=== PATIENT | female | born 1955 | race Caucasian/White ===

== ENCOUNTER 2018-02-23 03:56 | Inpatient (IN) | payer BC ==
[~2018-02-23] VITALS: Ht 167.6 cm; Wt 74.4 kg
[~2018-02-23 03:56] MED LIST: ARMO200T PO; CYCL-10 PO; DULO20CA PO; ESOM20CA33 PO; ESTR1TAB PO; LINA145C PO; LYR50 PO; MELO15TA13 PO; PRED-428 PO; TRAM100T28 PO
[2018-02-23 04:05] VITALS: BP_SYST 157
--- NOTE | 2018-02-23 04:05 | NUR ---
Patient to ER bed 3 to gown for evaluation. Side rails .
--- NOTE | 2018-02-23 04:10 | NUR ---
PT IN BED 3 WITH C/O ABDOMINAL PAIN , DR SARMIENTO AWARE.
--- NOTE | 2018-02-23 04:18 | NUR ---
SHELLY Jeffries at bedside examining patient.
[2018-02-23] MEDS ORDERED: NACL 0.9% 1,000 ML IV ONE ×2 (04:30→06:30)
[2018-02-23] MEDS ORDERED: MORPHINE 4 MG/ML INJ. SYRINGE IVP ONE ×2 (04:30→05:30)
[2018-02-23] MEDS ORDERED: ONDANSETRON HCL 4 MG/2 ML VIAL IVP ONE (04:30)
--- NOTE | 2018-02-23 04:55 | NUR ---
# 22 gauge angiocath placed to LAC. Use of asceptic technique. Opsite placed over site. Blood return noted. Blood for lab drawn from site. Flushed with 10 cc of normal saline. No evidence of infiltration noted. Patient tolerated well.
[2018-02-23] MEDS ORDERED: DULO60CA41 PO (05:11)
[2018-02-23] MEDS ORDERED: TRAM50TA92 PO (05:16)
[2018-02-23] MEDS ORDERED: TRAMADOL (05:16)
[2018-02-23] MEDS ORDERED: PREG150C PO (05:20)
[2018-02-23] MEDS ORDERED: ESOM40CA53 PO (05:21)
[2018-02-23] MEDS ORDERED: ACET-2165 PO (05:22)
[2018-02-23] MEDS ORDERED: SYMPROIC PO (05:28)
[2018-02-23 06:13] LABS: BASOPHILS # (AUTO) 0.2 K/uL (0.0-0.2); EOSINOPHILS # (AUTO) 0.1 K/uL (0.0-0.4); EOSINOPHILS % (AUTO) 0.8 % (0.0-4.0); HEMATOCRIT 43.2 % (36-48); HEMOGLOBIN 14.4 g/dL (12.0-16.0); LYMPHOCYTES # (AUTO) 2.2 K/uL (1.0-5.5); LYMPHOCYTES % (AUTO) 12.6 % (20.5-51.5); MEAN CORPUSCULAR HEMOGLOBIN 32 pg (27-31); MEAN CORPUSCULAR HGB CONC 33 % (32-36); MEAN CORPUSCULAR VOLUME 95 fL (79.0-98.0); MONOCYTES # (AUTO) 0.5 K/uL (0.0-1.0); MONOCYTES % (AUTO) 2.9 % (1.7-9.3); NEUTROPHILS # (AUTO) 14.2 K/uL (1.8-7.7); PLATELET COUNT (AUTO) 364 K/uL (130-430); RED BLOOD CELL COUNT(AUTO) 4.56 MIL/uL (4.2-6.2); RED CELL DISTRIBUTION WIDTH 12.7 % (9.0-15.0); WHITE BLOOD COUNT (AUTO) 17.2 K/uL (4.8-10.8)
[2018-02-23] MEDS ORDERED: KETOROLAC TROMETHAMINE 30 MG VIAL IVP ONE (06:15)
[2018-02-23 06:28] LABS: CALCIUM 9.3 mg/dL (8.4-11.0); CREATININE 0.65 mg/dL (0.55-1.30); POTASSIUM 3.8 mmol/L (3.5-5.1)
[2018-02-23] MEDS ORDERED: metroNIDAZOLE 500 mg/NS 100 ML IV ONE (06:30)
[2018-02-23] MEDS ORDERED: PIPERACILLIN/TAZO 3.375 GM in NS 50 ML IV ONE (06:30)
[2018-02-23 06:32] LABS: ALBUMIN 3.7 g/dL (3.4-4.8); TOTAL BILIRUBIN 0.4 mg/dL (0.0-1.0)
[2018-02-23 06:36] LABS: NEUTROPHILS % (AUTO) 82.7 % (40.0-70.0)
[2018-02-23] MEDS ORDERED: PIPERACILLIN/TAZOBACTAM 3.375 GM/VIAL (ZOSYN) IV ONE (06:38)
--- NOTE | 2018-02-23 07:30 | NUR ---
Report received from Maritza BURRIS. Pt laying on KIMBERLY white, at bedside. No acute distress noted.
[2018-02-23 08:04] LABS: BILIRUBIN,URINE NEGATIVE (NEGATIVE); BLOOD, URINE NEGATIVE (NEGATIVE); CLARITY/URINE HAZY (CLEAR); COLOR,URINE YELLOW (YELLOW); GLUCOSE,URINE NEGATIVE (NEGATIVE); KETONES,URINE TRACE (NEGATIVE); LEUKOCYTE ESTERASE ,URINE 1+ (NEGATIVE); NITRITE, URINE NEGATIVE (NEGATIVE); PROTEIN URINE NEGATIVE (NEGATIVE); UROBILINOGEN,URINE 0.2 (0.2-1.0)
[2018-02-23 08:11] LABS: BACTERIA,URINE MANY /HPF (None Seen); MUCUS,URINE 1+ /LPF (None Seen); RBC,URINE 0-3 /HPF (0-3)
--- NOTE | 2018-02-23 08:18 | NUR ---
Dr. Boogie at bedside speaking with pt and pt's discussing lab and diagnostic results.
[2018-02-23] MEDS ORDERED: D5/0.45 NS 1,000 ML IV ONE (08:45)
--- NOTE | 2018-02-23 08:45 | NUR ---
Transfer to tele via ACLS protocol. Licensed nurse present. IV present no signs or symptoms of infiltration.
--- NOTE | 2018-02-23 08:45 | NUR ---
Patient will be admitted to care of Dr. Barrios. Admitted to tele unit. Will go to room 130A. Belongings list completed. Summary report printed. Report will be given at bedside.
[2018-02-23] MEDS ORDERED: LORazepam 2 MG/ML VIAL (FOR ER USE) IVP ONE (09:00)
--- NOTE | 2018-02-23 09:36 | NUR ---
# 16 FR NG tube placed to L nare. Placement checked by auscultation of instilled air into stomach and aspiration of gastric contents. Tubing taped in place to prevent dislodging. Patient tolerated well.
--- NOTE | 2018-02-23 09:55 | NUR ---
Admission Note Received patient from ER with diagnosis of SMALL BOWEL OBSTRUCTION under the care of DR. JULIO. Initial Plan of Care discussed-patient verbalized understanding. Family at bedside. Oriented to room, call light, pain management and safety.
[2018-02-23 10:08] VITALS: BP_SYST 117
[2018-02-23] MEDS ORDERED: ACETAMINOPHEN 500 MG TABLET PO PRN (11:00)
[2018-02-23] MEDS ORDERED: ACETAMINOPHEN 650 MG SUPP.RECT RC PRN (11:00)
[2018-02-23] MEDS: D5LR 1,000 ML IV SCH ×2 (11:04→21:00)
--- NOTE | 2018-02-23 11:13 | NUR ---
CONSULT SURGERY SBO DR DUVALL,JESUS [phone] S/W DR DUVALL HE IS AWARE OF CONSULT
--- NOTE | 2018-02-23 11:15 | NUR ---
DR. DUVALL GAVE DR. DUVALL BRIEF SURGICAL HISTORY. DR. FELDER ROUND ON PT AFTER SBO SERIES.
[2018-02-23] MEDS ORDERED: GASTROGRAFIN 120 ML ONE (11:18)
--- NOTE | 2018-02-23 11:22 | NUR ---
PT TAKEN FOR SBO SERIES WILL CONTINUE TO MONITOR UPON RETURN.
[2018-02-23] MEDS: ONDANSETRON HCL 4 MG/2 ML VIAL IVP PRN ×2 (13:31→19:45)
[2018-02-23] MEDS: MORPHINE 4 MG/ML INJ. SYRINGE IVP PRN (13:31)
--- NOTE | 2018-02-23 13:35 | NUR ---
RETURN FROM RADIOLOGY SBO SERIES IS NOT COMPLETE YET. PT IS COMPLAINING OF ABDOMINAL PAIN AND NAUSEA. WAS GIVEN PRN MORPHINE 4MG AND ZOFRAN. PT IS ADVISED OF INCREASED RISK FOR FALLS AND THE IMPORTANCE OF USING THE CALL LIGHT IF SHE WANTS TO GET OUT OF BED. SON IS AT BEDSIDE. PER MEDICAL OFFICE CLERK, DO NOT CONNECT PT TO NGTUBE SUCTION. SCD'S ARE ON, BED IS AT LOWEST POSITION, CALL LIGHT WITHIN REACH, TWO SIDE RAILS UP, BED ALARM IS ON. WILL CONTINUE TO MONITOR.
--- NOTE | 2018-02-23 14:15 | NUR ---
ROUNDS LATE ENTRY DUE TO PT CARE: PT IS SLEEPING BUT IS EASILY AWAKEN. NO SIGNS OR SYMPTOMS OF DISTRESS OR SOB NOTED. FAMILY IS AT BEDSIDE. SBO SERIES IS ONGOING. IV ANTIBIOTIC WAS GIVEN. CURRENT NEEDS ARE MET. BED IS AT LOWEST POSITION, CALL LIGHT WITHIN REACH, THREE SIDE RAILS UP, BED ALARM IS ON. WILL CONTINUE TO MONITOR.
[2018-02-23] MEDS: PIPERACILLIN/TAZO 3.375/DEX-IS 50 ML IV SCH ×3 (14:18→23:18)
[2018-02-23 16:07] VITALS: BP_SYST 110
--- NOTE | 2018-02-23 16:17 | NUR ---
ROUNDS PT IS SLEEPING BUT IS EASILY AWAKEN. NO SIGNS OR SYMPTOMS OF DISTRESS OR SOB NOTED. SPOUSE IS AT BEDSIDE. PT CONTINUES TO BE ON LOW INTERMITTENT SUCTION ON NG TUBE. CURRENT NEEDS ARE MET. BED IS AT LOWEST POSITION, CALL LIGHT WITHIN REACH, TWO SIDE RAILS UP. WILL CONTINUE TO MONITOR.
--- NOTE | 2018-02-23 18:57 | NUR ---
CLOSING NOTE PT IS SLEEPING BUT IS EASILY AWAKEN. NO SIGNS OR SYMPTOMS OF DISTRESS OR SOB NOTED. NG TUBE WAS REMOVED PER ORDER. PT WAS GIVEN CLEAR LIQUID DIET. SPOUSE IS AT BEDSIDE. CURRENT NEEDS ARE MET. BED IS AT LOWEST POSITION, CALL LIGHT WITHIN REACH, THREE SIDE RAILS UP, BED ALARM IS ON. WILL CONTINUE TO MONITOR UNTIL CARE AND REPORT IS GIVEN TO NOVELTY TWISTER OPERATOR NURSE.
[2018-02-23 19:55] VITALS: BP_SYST 122
--- NOTE | 2018-02-23 19:55 | NUR ---
INITIAL NOTE AT INITIAL ASSESSMENT, PATIENT IS RESTING IN BED, STABLE, NO SIGNS OF RESPIRATORY DISTRESS. IS AT BEDSIDE. PATIENT VERBALIZES NAUSEA, AND TOLERABLE ABDOMINAL PAIN. PRN MEDICATION FOR NAUSEA WILL BE GIVEN. PLAN OF CARE FOR THE EVENING IS COMMUNICATED WITH THE PATIENT AND FAMILY. IV IS SECURE, INTACT, AND RUNNING IVF ORDERED. CALL LIGHT- TEACH BACK IS SUCCESSFUL. BED IS LOCKED, ALARMED, AND AT THE LOWEST LEVEL.
--- NOTE | 2018-02-23 21:53 | NUR ---
NOTE PATIENT IS SLEEPING, STABLE, NO SIGNS OF RESPIRATORY DISTRESS. FAMILY IS AT BEDSIDE. CALL LIGHT WITHIN REACH. BED IS LOCKED, ALARMED, AND AT THE LOWEST LEVEL.
--- NOTE | 2018-02-23 23:05 | NUR ---
NOTE PATIENT IS SLEEPING, STABLE, NO SIGNS OF RESPIRATORY DISTRESS. CALL LIGHT WITHIN REACH. BED IS LOCKED, ALARMED, AND AT THE LOWEST LEVEL.
--- NOTE | 2018-02-24 00:22 | NUR ---
IV D/V AND INSERTION PATIENT HAS BEEN UNABLE TO REST DUE TO HIGH PRESSURE ALARMS SINCE HER IV IS ON HER LEFT AC AND SHE DOES NOT LIKE TO KEEP HER ARM STRAIGHT. AT THIS TIME, PATIENT WAS OFFERED TO HAVE A NEW IV PLACED ON HER FOREARM WHERE IT WILL NOT BE LIKELY TO ALARM FOR HIGH PRESSURE OFTEN, PATIENT AGREED. NEW IV HAS BEEN STARTED ON LEFT FOREARM 20 GAUGE. IV IS SECURED, INTACT, AND PATENT, IT IS RUNNING IVF ORDERED. OLD IV HAS BEEN D/C, TIP INTACT, NO BLEEDING NOTED, PATIENT TOLERATED WELL. PATIENT IS STABLE, NO SIGNS OF RESPIRATORY DISTRESS. POSITIONED FOR COMFORT. CALL LIGHT WITHIN REACH. BED IS LOCKED, ALARMED, AND AT THE LOWEST LEVEL. Addendum: 02/24/18 at 0028 by Robin Ralph RN MISSPELLED TITLE- IV D/C AND INSERTION*
[2018-02-24 01:06] VITALS: BP_SYST 125
--- NOTE | 2018-02-24 02:14 | NUR ---
INITIAL PATIENT IS SLEEPING, STABLE, NO SIGNS OF RESPIRATORY DISTRESS. CALL LIGHT WITHIN REACH. BED IS LOCKED, ALARMED, AND AT THE LOWEST LEVEL. Addendum: 02/24/18 at 0654 by Robin Ralph RN TITLE INTENDED TO BE "NOTE"
--- NOTE | 2018-02-24 04:10 | NUR ---
NOTE PATIENT IS SLEEPING, STABLE, NO SIGNS OF RESPIRATORY DISTRESS. CALL LIGHT WITHIN REACH. BED IS LOCKED, ALARMED, AND AT THE LOWEST LEVEL.
--- NOTE | 2018-02-24 05:37 | NUR ---
NOTE PATIENT IS SLEEPING, STABLE, NO SIGNS OF RESPIRATORY DISTRESS. CALL LIGHT WITHIN REACH. BED IS LOCKED, ALARMED, AND AT THE LOWEST LEVEL.
--- NOTE | 2018-02-24 06:32 | NUR ---
CLOSING NOTE PATIENT IS SLEEPING, STABLE, NO SIGNS OF RESPIRATORY DISTRESS. IV IS SECURE, INTACT, AND RUNNING IVF ORDERED. CALL LIGHT WITHIN REACH. BED IS LOCKED, ALARMED, AND AT THE LOWEST LEVEL. WILL CONTINUE TO MONITOR UNTIL SHIFT REPORT IS GIVEN AT BEDSIDE TO AM NURSE.
[2018-02-24] MEDS: PIPERACILLIN/TAZO 3.375/DEX-IS 50 ML IV SCH ×4 (06:44→23:49)
[2018-02-24] MEDS: D5LR 1,000 ML IV SCH ×2 (06:45→11:40)
[2018-02-24 07:17] LABS: BASOPHILS % (AUTO) 0.5 % (0.0-2.0); EOSINOPHILS # (AUTO) 0.2 K/uL (0.0-0.4); EOSINOPHILS % (AUTO) 2.3 % (0.0-4.0); HEMATOCRIT 38.3 % (36-48); HEMOGLOBIN 13.2 g/dL (12.0-16.0); LYMPHOCYTES # (AUTO) 1.9 K/uL (1.0-5.5); LYMPHOCYTES % (AUTO) 21.4 % (20.5-51.5); MEAN CORPUSCULAR HEMOGLOBIN 33 pg (27-31); MEAN CORPUSCULAR HGB CONC 35 % (32-36); MEAN CORPUSCULAR VOLUME 94 fL (79.0-98.0); MONOCYTES # (AUTO) 0.5 K/uL (0.0-1.0); NEUTROPHILS # (AUTO) 6.2 K/uL (1.8-7.7); NEUTROPHILS % (AUTO) 69.8 % (40.0-70.0); PLATELET COUNT (AUTO) 369 K/uL (130-430); RED BLOOD CELL COUNT(AUTO) 4.07 MIL/uL (4.2-6.2); RED CELL DISTRIBUTION WIDTH 12.9 % (9.0-15.0)
[2018-02-24 07:33] LABS: ALBUMIN 3.2 g/dL (3.4-4.8); CALCIUM 8.8 mg/dL (8.4-11.0); CREATININE 0.66 mg/dL (0.55-1.30); PHOSPHORUS 4.3 mg/dL (2.7-4.5); POTASSIUM 3.2 mmol/L (3.5-5.1); TOTAL BILIRUBIN 0.5 mg/dL (0.0-1.0)
[2018-02-24 07:38] LABS: WHITE BLOOD COUNT (AUTO) 8.8 K/uL (4.8-10.8)
--- NOTE | 2018-02-24 07:50 | NUR ---
INITIAL NOTES RECEVIED PATIENT FROM VEST TAILOR. PATIENT A/Ox4. ROOM AIR. NO ACUTE DISTRESS. NO SOB. RESPIRATION EVEN AND UNLABORED. SKIN WARM AN DRY TO TOUCH. IV INTACT AND PATENT WITH NO S/SX INFECTION/INFILTRATION NOTED. ORIENTED PATIENT TO CALL LIGHT AND TO USE FOR ASSIST, PT VERBALIZED UNDERSTANDING. AT BEDSIDE. CONT SAFETY/FALL PRECAUTION. CALL LIGHT IN REACH. CONT TO MONITOR.
[2018-02-24 08:00] VITALS: BP_SYST 149
[2018-02-24] MEDS: POLYETHYLENE GLYCOL 3350, 17 GM/ POWD.PACK PO SCH (08:33)
[2018-02-24] MEDS: MORPHINE 4 MG/ML INJ. SYRINGE IVP PRN ×3 (08:39→20:32)
[2018-02-24] MEDS: ONDANSETRON HCL 4 MG/2 ML VIAL IVP PRN ×2 (08:39→13:28)
--- NOTE | 2018-02-24 08:45 | NUR ---
meds ASSISTED PATIENT TO BATHROOM, ORA WELL. ALL DUE MEDS ADMINISTERED INCLUDING NAUSEA AND PAIN MEDICATION FOR ABDOMINAL PAIN. ALSO REPOSITIONED PATIENT FOR COMFORT. BED IN LOW AND LOCKED POSITION. BED ALARM ON. PATIENT REFUSED SCDs. ALL NEEDS MET. CONT TO MONITOR.
--- NOTE | 2018-02-24 09:50 | NUR ---
NOTES PATIENT RESTING IN BED. STABLE. HOB UP. NO ACUTE DISTRESS. NO SOB. PATIENT STILL C/O NAUSEA, PROVIDED PATIENT WITH ICE PACK AND HELPFUL. REPOSITIONED FOR COMFORT. ALL NEEDS MET. CONT TO MONITOR.
--- NOTE | 2018-02-24 11:50 | NUR ---
NOTES PATIENT STABLE. RESTING, EASILY AROUSABLE. ADMINISTERED IV ATB AND IV FLUIDS ORDERED, ORA WELL. NO ACUTE DISTRESS. NO SOB. ALL NEEDS MET. CONT TO MONITOR. AT BEDSIDE.
[2018-02-24 12:20] VITALS: BP_SYST 127
--- NOTE | 2018-02-24 12:20 | NUR ---
SPOKE TO ON PHONE. REPORTED PATIENT IS STILL C/O ABDOMINAL PAIN AND NAUSEA. PATIENT'S POTASSIUM IS AT 3.2. RECEIVED NEW ORDER FOR KDUR 40MEQ x1 ORDERED. ALL NEEDS MET. CONT TO MONITOR.
[2018-02-24] MEDS ORDERED: POTASSIUM CHLORIDE 20 MEQ TAB.PRT.SR PO ONE (12:30)
--- NOTE | 2018-02-24 13:30 | NUR ---
N/V, PAIN PATIENT VOMITTED x1 NOTED MODERATE AMOUNT OF GREENISH SECRETIONS. HOB UP. ZOFRAN AND PAIN MED ADMINISTERED ORDERED, ORA WELL. ALL NEEDS MET. FAMILY SITTING AT BEDSIDE. CONT TO MONITOR.
--- NOTE | 2018-02-24 14:00 | NUR ---
NOTES PATIENT AWAKE IN BED TALKING TO AND HER KIDS SITTING AT BEDSIDE. NO ACUTE DISTRESS. NO SOB. RESPIRATION EVEN AND UNLABORED. SKIN WARM AND DRY TO TOUCH. CONT TO MONITOR.
--- NOTE | 2018-02-24 15:04 | NUR ---
DC planning: Met w/pt and at bedside--pt wanting to sleep--Lives at home with --has no DME at home-has been independent with ADLs--F/u as needed for dc planning--per Julian pt has had multiple medical issues in the past that have been managed by her physician Dr. Dawson-- RN
--- NOTE | 2018-02-24 16:30 | NUR ---
PATIENT STABLE. SEEN BY AT BEDSIDE. INFORMED THAT MORPHINE IS NOT REALLY EFFECTIVE AND PATIENT STILL C/O ABD PAIN, PATIENT VOMITED x1 AFTER KDUR WAS ADMINISTERED, PATIENTS ABDOMEN IS REALLY DISTENDED SINCE THE MORNING. WILL PUT IN ORDERS.
[2018-02-24] MEDS ORDERED: CYCLOBENZAPRINE HCL 10 MG TABLET (FLEXERIL) PO ONE (16:45)
[2018-02-24] MEDS ORDERED: ACETAMINOPHEN 325 MG TABLET PO PRN (16:45)
[2018-02-24] MEDS ORDERED: traMADol HCL HCL 50 MG TABLET (ULTRAM) PO ONE (16:45)
[2018-02-24] MEDS ORDERED: MELOXICAM 7.5 MG TABLET PO ONE (16:45)
[2018-02-24 16:48] VITALS: BP_SYST 135
[2018-02-24] MEDS: METOCLOPRAMIDE HCL 10 MG/2 ML VIAL IVP PRN (17:09)
[2018-02-24] MEDS ORDERED: PANTOPRAZOLE SODIUM 40 MG TAB PO ONE (17:15)
[2018-02-24] MEDS ORDERED: KETOROLAC TROMETHAMINE 30 MG VIAL IVP ONE (17:15)
--- NOTE | 2018-02-24 17:26 | NUR ---
SEEN BY AT BEDSIDE. STABLE. CONT TO MONITOR. CALL LIGHT IN REACH.
--- NOTE | 2018-02-24 17:29 | NUR ---
[facility] PATIENT TRANSFERRED TO [facility]. PATIENT STABLE. NO ACUTE DISTRESS. NO SOB. RESPIRATION EVEN AND UNLABORED. CONT TO MONITOR.
[2018-02-24] MEDS ORDERED: BISACODYL 10 MG/SUPPOSITORY RC PRN (17:30)
[2018-02-24] MEDS ORDERED: BISACODYL 10 MG/SUPPOSITORY RC ONE (17:30)
[2018-02-24] MEDS ORDERED: DIAZEPAM 10 MG/2 ML DISP.SYRIN IM ONE (17:30)
[2018-02-24] MEDS ORDERED: POTASSIUM CHLORIDE 40 MEQ, LIDOCAINE JECT 2% PF 100 MG 50 MG in NS 250 ML IV ONE (18:00)
--- NOTE | 2018-02-24 19:00 | NUR ---
CLOSING NOTE PATIENT RESTING IN BED, EASILY AROUSABLE. STABLE. NO ACUTE DISTRESS. NO SOB. RESPIRATION EVEN AND UNLABORED. SKIN WARM AND DRY TO TOUCH. ABDOMINAL XRAY DONE, PENDING RESULT. ALL NEEDS MET. CALL LIGHT IN REACH. WILL ENDORSE TO ONCOMING SHIFT. SITTING AT BEDSIDE.
[2018-02-24 19:35] VITALS: BP_SYST 154
--- NOTE | 2018-02-24 19:35 | NUR ---
OPENING NOTE RECEIVED PT ENDORSEMENT REPORT FROM DAY SHIFT NURSE RENE. PT IS AOX4. PT CURRENTLY RESTING IN BED WITH EYES CLOSED. AT BEDSIDE. CHEST RISE EVEN AND UNLABORED. NO SOB NOTED. NO DISTRESS NOTED. NO S/S OF PAIN NOTED. IV DRY AND INTACT. IV SITE IN LEFT FOREARM 20 GAUGE. IVF INFUSING WELL. NO FURTHER NEEDS AT THIS TIME. SAFETY MEASURES IN PLACE. BED IN LOWEST POSITION. BED WHEELS LOCKED, BED ALARM ON, BED RAILS UP X2, CALL LIGHT WITHIN REACH, BEDSIDE TABLE WITHIN REACH. NO FURTHER NEEDS AT THIS TIME, WILL CONTINUE TO MONITOR PT.
--- NOTE | 2018-02-24 20:35 | NUR ---
RN ROUNDS PT RESTING IN BED WITH EYES OPEN. AT BEDSIDE. CHEST RISE EVEN AND UNLABORED. NO SOB NOTED. NO DISTRESS NOTED. PT REPORTS 10/10 ABDOMINAL PAIN. VITAL SIGNS WNL. MORPHINE 4 MG IVP ADMINISTERED ORDERED FOR PAIN. IV DRY AND INTACT. IV SITE IN LEFT FOREARM 20 GAUGE. IVF INFUSING WELL. NO NEEDS AT THIS TIME. SAFETY MEASURES IN PLACE. BED IN LOWEST POSITION. BED WHEELS LOCKED, BED ALARM ON, BED RAILS UP X2, CALL LIGHT WITHIN REACH, BEDSIDE TABLE WITHIN REACH. NO FURTHER NEEDS AT THIS TIME, WILL CONTINUE TO MONITOR PT.
[2018-02-24] MEDS: SIMETHICONE 80 MG TAB.CHEW PO SCH ×2 (21:00→21:44)
[2018-02-24] MEDS ORDERED: NON-FORMULARY MEDICATION (Pregabalin (Lyrica) 150 MG) PO SCH (21:00)
[2018-02-24] MEDS: DULoxetine HCL 30 MG CAPSULE.DR (CYMBALTA) PO SCH (21:43)
[2018-02-24] MEDS: CYCLOBENZAPRINE HCL 10 MG TABLET (FLEXERIL) PO SCH (21:44)
[2018-02-24] MEDS: traMADol HCL HCL 50 MG TABLET (ULTRAM) PO SCH (21:45)
[2018-02-24] MEDS: PREGABALIN 75 MG CAPSULE (LYRICA) PO SCH (21:46)
--- NOTE | 2018-02-24 21:50 | NUR ---
RN ROUNDS PT RESTING IN BED WITH EYES CLOSED. PT EASILY AWAKEN, AT BEDSIDE. CHEST RISE EVEN AND UNLABORED. NO SOB NOTED. NO DISTRESS NOTED. PT DENIES PAIN AT THIS TIME. IVF INFUSING WELL. ALL SCHEDULED MEDICATIONS ADMINISTERED ORDERED. PT TOLERATED WELL. NO FURTHER NEEDS AT THIS TIME. SAFETY MEASURES IN PLACE. BED IN LOWEST POSITION. BED WHEELS LOCKED, BED ALARM ON, BED RAILS UP X2, CALL LIGHT WITHIN REACH, BEDSIDE TABLE WITHIN REACH. NO FURTHER NEEDS AT THIS TIME, WILL CONTINUE TO MONITOR PT.
--- NOTE | 2018-02-24 23:00 | NUR ---
RN ROUNDS PT RESTING IN BED WITH EYES OPEN. CHEST RISE EVEN AND UNLABORED. NO SOB NOTED. NO DISTRESS NOTED. PT REPORTS MAYURI AT THE IV. IV INFILTRATED. NEW IV STARTED ON RIGHT FOREARM 20 GAUGE. IVF INFUSING WELL. NO REPORTS OF PAIN. NO S/S OF PAIN OR INFECTION. SAFETY MEASURES IN PLACE. BED IN LOWEST POSITION. BED WHEELS LOCKED, BED ALARM ON, BED RAILS UP X2, CALL LIGHT WITHIN REACH, BEDSIDE TABLE WITHIN REACH. NO FURTHER NEEDS AT THIS TIME, WILL CONTINUE TO MONITOR PT.
[2018-02-25] MEDS: MORPHINE 4 MG/ML INJ. SYRINGE IVP PRN ×4 (01:09→20:52)
--- NOTE | 2018-02-25 01:10 | NUR ---
RN ROUNDS PT RESTING IN BED WITH EYES OPEN. AT BEDSIDE. CHEST RISE EVEN AND UNLABORED. NO SOB NOTED. NO DISTRESS NOTED. PT REPORTS ABDOMINAL PAIN AT THIS TIME, 07/21. MORPHINE 4 MG IVP ADMINISTERED ORDERED FOR SEVERE PAIN. PT TOLERATED WELL. IVF INFUSING WELL. NO NEEDS AT THIS TIME. SAFETY MEASURES IN PLACE. BED IN LOWEST POSITION. BED WHEELS LOCKED, BED ALARM ON, BED RAILS UP X2, CALL LIGHT WITHIN REACH, BEDSIDE TABLE WITHIN REACH. NO FURTHER NEEDS AT THIS TIME, WILL CONTINUE TO MONITOR PT.
[2018-02-25 01:14] VITALS: BP_SYST 145
[2018-02-25 01:20] VITALS: BP_SYST 135
[2018-02-25] MEDS: D5LR 1,000 ML IV SCH ×3 (02:32→20:40)
[2018-02-25] MEDS: ONDANSETRON HCL 4 MG/2 ML VIAL IVP PRN ×3 (03:10→11:37)
--- NOTE | 2018-02-25 03:10 | NUR ---
NAUSEA: PT CALLED AND STATED THAT SHE IS NAUSEATED ,NO VOMITING ;REQUESTED FOR MEDICATION , PER ORDER ZOFRAN GIVEN . WILL MONITOR PT .
--- NOTE | 2018-02-25 05:00 | NUR ---
RN ROUNDS PT RESTING IN BED WITH EYES CLOSED, AT BEDSIDE. CHEST RISE EVEN AND UNLABORED. NO SOB NOTED. NO DISTRESS NOTED. NO S/S OF PAIN NOTED. IVF INFUSING WELL. NO NEEDS AT THIS TIME. SAFETY MEASURES IN PLACE. BED IN LOWEST POSITION. BED WHEELS LOCKED, BED ALARM ON, BED RAILS UP X2, CALL LIGHT WITHIN REACH, BEDSIDE TABLE WITHIN REACH. NO FURTHER NEEDS AT THIS TIME, WILL CONTINUE TO MONITOR PT.
[2018-02-25] MEDS: PIPERACILLIN/TAZO 3.375/DEX-IS 50 ML IV SCH ×4 (05:52→23:22)
--- NOTE | 2018-02-25 07:39 | NUR ---
CLOSING NOTE ENDORSED PT REPORT TO DAY SHIFT NURSE SRUTHI. PT IS AOX4. PT RESTING IN BED WITH EYES OPEN, AT BEDSIDE. CHEST RISE EVEN AND UNLABORED. NO SOB NOTED. NO DISTRESS NOTED. PT DENIES PAIN AT THIS TIME. IVF INFUSING WELL. NO FURTHER NEEDS AT THIS TIME. SAFETY MEASURES IN PLACE. BED IN LOWEST POSITION. BED WHEELS LOCKED, BED ALARM ON, BED RAILS UP X2, CALL LIGHT WITHIN REACH, BEDSIDE TABLE WITHIN REACH. NO FURTHER NEEDS AT THIS TIME, WILL CONTINUE TO MONITOR PT.
--- NOTE | 2018-02-25 08:01 | NUR ---
Nutrition Update Edmar Scale 18 noted. Pt admitted for small bowel obstruction Diet: Clear Liquid, No red BMI: 26.5 kg/m2 RD to follow per nutrition care standards.
[2018-02-25 08:15] VITALS: BP_SYST 133
--- NOTE | 2018-02-25 08:20 | NUR ---
OPENING NOTE LATE ENTRY DUE TO PT CARE: REPORT IS RECEIVED FROM [employer] SPECIALIST NURSE AND CARE IS ENDORSED OVER TO MYSELF. PT IS RECEIVED AWAKE, ALERT, AND ORIENTED X4. MORNING VS ARE STABLE BUT HEART RATE ELEVATED AT 102 BPM. IV ACCESS IS LOCATED IN RIGHT FOREARM 22G WITH D5LR INFUSING AT 100ML/HR. WHITE BOARD IS UPDATED WITH CURRENT INFORMATION AND PLAN OF CARE IS DISCUSSED. BED IS AT LOWEST POSITION, CALL LIGHT WITHIN REACH, TWO SIDE RAILS UP. WILL CONTINUE TO MONITOR.
[2018-02-25] MEDS: SIMETHICONE 80 MG TAB.CHEW PO SCH ×6 (09:00→20:41)
[2018-02-25] MEDS ORDERED: SYMPROIC PO SCH (09:00)
[2018-02-25] MEDS ORDERED: [UNRECOGNIZED DRUG - OTHER] PO SCH (09:00)
[2018-02-25] MEDS ORDERED: NON-FORMULARY MEDICATION (Esomeprazole Magnesium 40 MG) PO SCH (09:00)
[2018-02-25] MEDS: POLYETHYLENE GLYCOL 3350, 17 GM/ POWD.PACK PO SCH (09:39)
[2018-02-25] MEDS: PREGABALIN 75 MG CAPSULE (LYRICA) PO SCH ×3 (09:40→20:40)
[2018-02-25] MEDS: PANTOPRAZOLE SODIUM 40 MG TAB PO SCH (09:40)
[2018-02-25] MEDS: CYCLOBENZAPRINE HCL 10 MG TABLET (FLEXERIL) PO SCH ×2 (09:41→20:40)
[2018-02-25] MEDS: DULoxetine HCL 30 MG CAPSULE.DR (CYMBALTA) PO SCH ×2 (09:41→20:40)
[2018-02-25] MEDS: MELOXICAM 7.5 MG TABLET PO SCH (09:41)
[2018-02-25] MEDS: traMADol HCL HCL 50 MG TABLET (ULTRAM) PO SCH ×3 (09:42→20:42)
--- NOTE | 2018-02-25 10:20 | NUR ---
ROUNDS LATE ENTRY DUE TO PT CARE: PT IS AWAKE AND ALERT. NO SIGNS OR SYMPTOMS OF DISTRESS OR SOB NOTED. ABDOMINAL DISTENSION PRESENT. PT ASKED IF SHE WANTED SUPPOSITORY PER PT NOT HAVING BM SINCE 02/23/18. PT REFUSED DUE TO HAVING HER SON AT BEDSIDE. MORNING MEDICATIONS WERE GIVEN AND TOLERATED WELL. CURRENT NEEDS ARE MET. BED IS AT LOWEST POSITION, CALL LIGHT WITHIN REACH, TWO SIDE RAILS UP. WILL CONTINUE TO MONITOR.
[2018-02-25 12:05] VITALS: BP_SYST 116
--- NOTE | 2018-02-25 12:20 | NUR ---
ROUNDS LATE ENTRY DUE TO PT CARE: PT IS AWAKE AND ALERT. NO SIGNS OR SYMPTOMS OF DISTRESS OR SOB NOTED. SON IS AT BEDSIDE. IV ANTIBIOTIC IS INFUSING. CURRENT NEEDS ARE MET. BED IS AT LOWEST POSITION, CALL LIGHT WITHIN REACH, TWO SIDE RAILS UP. WILL CONTINUE TO MONITOR.
[2018-02-25 13:41] LABS: BASOPHILS % (AUTO) 0.3 % (0.0-2.0); EOSINOPHILS # (AUTO) 0.2 K/uL (0.0-0.4); EOSINOPHILS % (AUTO) 1.5 % (0.0-4.0); HEMATOCRIT 39.7 % (36-48); HEMOGLOBIN 13.4 g/dL (12.0-16.0); LYMPHOCYTES # (AUTO) 1.6 K/uL (1.0-5.5); LYMPHOCYTES % (AUTO) 13.1 % (20.5-51.5); MEAN CORPUSCULAR HEMOGLOBIN 32 pg (27-31); MEAN CORPUSCULAR HGB CONC 34 % (32-36); MEAN CORPUSCULAR VOLUME 95 fL (79.0-98.0); MONOCYTES # (AUTO) 0.7 K/uL (0.0-1.0); MONOCYTES % (AUTO) 5.5 % (1.7-9.3); NEUTROPHILS # (AUTO) 9.4 K/uL (1.8-7.7); NEUTROPHILS % (AUTO) 79.6 % (40.0-70.0); PLATELET COUNT (AUTO) 378 K/uL (130-430); RED BLOOD CELL COUNT(AUTO) 4.18 MIL/uL (4.2-6.2); RED CELL DISTRIBUTION WIDTH 12.4 % (9.0-15.0); WHITE BLOOD COUNT (AUTO) 11.9 K/uL (4.8-10.8)
[2018-02-25 13:57] LABS: CALCIUM 8.8 mg/dL (8.4-11.0); CREATININE 0.67 mg/dL (0.55-1.30); POTASSIUM 3.9 mmol/L (3.5-5.1)
--- NOTE | 2018-02-25 14:20 | NUR ---
ROUNDS LATE ENTRY DUE TO PT CARE: PT IS AWAKE AND ALERT. NO SIGNS OR SYMPTOMS OF DISTRESS OR SOB NOTED. GAVE PRN MORPHINE AND PT ADVISED OF INCREASED RISK FOR FALLS AND THE IMPORTANCE OF USING CALL LIGHT. PT VERBALIZED UNDERSTANDING. CURRENT NEEDS ARE MET. BED IS AT LOWEST POSITION, CALL LIGHT WITHIN REACH, TWO SIDE RAILS UP. WILL CONTINUE TO MONITOR.
--- NOTE | 2018-02-25 14:35 | NUR ---
Dietitian Recommendations *Recommend continuing clear liquid diet per MD. *Encourage pt to increase oral intake. *Recommend alternate route of feeding if PO intake does not improve 7 days. Please see Nutritional Assessment for details. GENE, RD
--- NOTE | 2018-02-25 15:00 | NUR ---
DR. DUVALL CALLED NOTIFIED OF PT ABDOMINAL XRAY RESULTS. STATED TO PUT PT NPO EFFECTIVE IMMEDIATELY. STATED HE WILL COME IN TO SPEAK TO PT.
[2018-02-25] MEDS: KETOROLAC TROMETHAMINE 30 MG VIAL IVP PRN ×2 (15:12→23:22)
--- NOTE | 2018-02-25 16:20 | NUR ---
ROUNDS LATE ENTRY DUE TO PT CARE: PT IS AWAKE AND ALERT. NO SIGNS OR SYMPTOMS OF DISTRESS OR SOB NOTED. PT CONTINUES TO BE NPO. CURRENT NEEDS ARE MET. BED IS AT LOWEST POSITION, CALL LIGHT WITHIN REACH, TWO SIDE RAILS UP. WILL CONTINUE TO MONITOR.
[2018-02-25 16:58] VITALS: BP_SYST 112
--- NOTE | 2018-02-25 18:54 | NUR ---
CLOSING NOTE PT IS SLEEPING BUT IS EASILY AWAKEN. SPOUSE IS AT BEDSIDE. NO SIGNS OR SYMPTOMS OF DISTRESS OR SOB NOTED. CURRENT NEEDS ARE MET. BED IS AT LOWEST POSITION, CALL LIGHT WITHIN REACH, TWO SIDE RAILS UP. WILL CONTINUE TO MONITOR UNTIL CARE AND REPORT IS GIVEN TO DIRECTOR PEOPLESOFT NURSE.
[2018-02-25 20:00] VITALS: BP_SYST 139
--- NOTE | 2018-02-25 20:00 | NUR ---
Initial Notes Received patient resting in bed, awake, alert, oriented, at bedside. Patient denies any acute distress at this time. Breathing is even and unlabored. IV site patent/clean/dry. Needs addressed. Educated patient regarding use of call light for assistance and fall precautions, patient verbalized understanding. Call light in hand, fall precautions in place. Per prior RN, patient is NPO per Dr. Fragoso.
--- NOTE | 2018-02-25 22:00 | NUR ---
Nursing Notes Patient resting in bed with eyes closed, easily aroused. Patient denies any acute distress at this time. Breathing is even and unlabored. IV site patent/clean/dry. Needs addressed. Call light in hand, fall precautions in place. at bedside. Dr. Fragoso on unit, will see patient.
--- NOTE | 2018-02-26 | NUR ---
Nursing Notes Patient resting in bed with eyes closed, easily aroused. Patient denies any acute distress at this time. Breathing is even and unlabored. IV site patent/clean/dry. Patient denies any needs at this time. Call light in hand, fall precautions in place. at bedside.
--- NOTE | 2018-02-26 02:00 | NUR ---
Nursing Notes Patient resting in bed with eyes closed. No acute distress noted. Breathing is even and unlabored. IV site patent/clean/dry. Call light in hand, fall precautions in place. Will continue to monitor for changes and safety.
[2018-02-26 02:48] VITALS: BP_SYST 126
--- NOTE | 2018-02-26 04:00 | NUR ---
Nursing Notes Patient resting in bed, awake. Patient denies any acute distress or pain at this time. Breathing is even and unlabored. IV site patent/clean/dry. Assisted patient to restroom for toileting needs. Needs addressed. Call light in hand, fall precautions in place. Will continue to monitor.
[2018-02-26 04:34] LABS: BASOPHILS # (AUTO) 0.1 K/uL (0.0-0.2); BASOPHILS % (AUTO) 0.8 % (0.0-2.0); EOSINOPHILS # (AUTO) 0.3 K/uL (0.0-0.4); EOSINOPHILS % (AUTO) 2.4 % (0.0-4.0); HEMATOCRIT 39.2 % (36-48); HEMOGLOBIN 13.2 g/dL (12.0-16.0); LYMPHOCYTES # (AUTO) 1.7 K/uL (1.0-5.5); LYMPHOCYTES % (AUTO) 15.6 % (20.5-51.5); MEAN CORPUSCULAR HEMOGLOBIN 32 pg (27-31); MEAN CORPUSCULAR HGB CONC 34 % (32-36); MEAN CORPUSCULAR VOLUME 95 fL (79.0-98.0); MONOCYTES # (AUTO) 0.6 K/uL (0.0-1.0); MONOCYTES % (AUTO) 5.4 % (1.7-9.3); NEUTROPHILS # (AUTO) 8.1 K/uL (1.8-7.7); NEUTROPHILS % (AUTO) 75.8 % (40.0-70.0); PLATELET COUNT (AUTO) 385 K/uL (130-430); RED BLOOD CELL COUNT(AUTO) 4.12 MIL/uL (4.2-6.2); RED CELL DISTRIBUTION WIDTH 12.9 % (9.0-15.0); WHITE BLOOD COUNT (AUTO) 10.8 K/uL (4.8-10.8)
[2018-02-26 04:38] LABS: CALCIUM 9.1 mg/dL (8.4-11.0); CREATININE 0.75 mg/dL (0.55-1.30); POTASSIUM 3.8 mmol/L (3.5-5.1)
[2018-02-26] MEDS: PIPERACILLIN/TAZO 3.375/DEX-IS 50 ML IV SCH ×4 (05:01→23:44)
[2018-02-26] MEDS: ONDANSETRON HCL 4 MG/2 ML VIAL IVP PRN (06:19)
[2018-02-26] MEDS: MORPHINE 4 MG/ML INJ. SYRINGE IVP PRN ×4 (06:20→22:14)
--- NOTE | 2018-02-26 06:32 | NUR ---
Closing Notes Patient resting in bed with eyes closed, easily aroused, family at bedside. Patient denies any acute distress. Medicated patient for pain. Breathing is even and unlabored on room air. IV site patent/clean/dry, no S/S infection/infiltration noted. Needs addressed throughout shift. Call light in hand, fall precautions in place. Will continue to monitor for changes and safety, and endorse all patient care/needs to oncoming nurse. Patient has been NPO since midnight for procedure today.
--- NOTE | 2018-02-26 07:50 | NUR ---
INITIAL NOTE PT IN BED, NO S/S OF DISTRESS OR SOB NOTED, PT HAS NO C/O PAIN AT THIS TIME, PT IN STABLE CONDITION, PT AAOX4, VERBAL, IV CATHETER PATENT, NO SIGNS OF INFECTION OR INFILTRATION NOTED. BED AT LOWEST POSITION, CALL LIGHT WITHIN REACH, WILL CONTINUE TO MONITOR PT FOR ANY CHANGES, FALL AND SAFETY PRECAUTIONS IN PLACE. PT NPO FOR SURGERY TODAY BUT NO SET TIME YET. Addendum: 02/26/18 at 0948 by Becky Whiting RN BED ALARM ON
[2018-02-26 08:19] VITALS: BP_SYST 128
[2018-02-26 09:00] LABS: PROTHROMBIN TIME 10.3 SECS (9.5-12.5)
[2018-02-26] MEDS: PREGABALIN 75 MG CAPSULE (LYRICA) PO SCH ×3 (09:00→21:00)
[2018-02-26] MEDS: SIMETHICONE 80 MG TAB.CHEW PO SCH ×5 (09:00→21:00)
[2018-02-26] MEDS: traMADol HCL HCL 50 MG TABLET (ULTRAM) PO SCH ×3 (09:00→21:00)
[2018-02-26] MEDS: PANTOPRAZOLE SODIUM 40 MG TAB PO SCH (09:00)
[2018-02-26] MEDS: DULoxetine HCL 30 MG CAPSULE.DR (CYMBALTA) PO SCH ×2 (09:00→21:00)
[2018-02-26] MEDS: POLYETHYLENE GLYCOL 3350, 17 GM/ POWD.PACK PO SCH (09:00)
[2018-02-26] MEDS: CYCLOBENZAPRINE HCL 10 MG TABLET (FLEXERIL) PO SCH ×2 (09:00→21:00)
[2018-02-26] MEDS: MELOXICAM 7.5 MG TABLET PO SCH (09:00)
[2018-02-26] MEDS: D5LR 1,000 ML IV SCH ×3 (10:06→23:49)
--- NOTE | 2018-02-26 10:20 | NUR ---
ROUNDS PT IN BED, NO S/S OF DISTRESS OR SOB NOTED, PT HAS NO C/O PAIN AT THIS TIME, PT IN STABLE CONDITION, PT RESTING COMFORTABLY, WILL CONTINUE TO MONITOR PT FOR ANY CHANGES.
[2018-02-26 12:35] VITALS: BP_SYST 122
--- NOTE | 2018-02-26 13:05 | NUR ---
OR PT LEFT UNIT FOR OR, NO S/S OF DISTRESS OR SOB NOTED, PT HAS NO C/O PAIN AT THIS TIME, PT IN STABLE CONDITION, PT UNABLE TO REMOVE BRACELETS SO THEY WERE TAPPED DOWN, OR AWARE. FAMILY AT BEDSIDE.
[2018-02-26] MEDS ORDERED: SEVOFLURANE 15 MIN GAS INH ONE (15:15)
[2018-02-26] MEDS ORDERED: NS IRRIG SOLN 1000 ML IR ONE (15:15)
[2018-02-26] MEDS ORDERED: PROPOFOL 200MG/ 20ML VIAL (DIPRIVAN) IV ONE (15:15)
[2018-02-26] MEDS ORDERED: PHENYLEPHRINE HCL 10 MG/ML VIAL (NEOSYNEPHRINE) IV ONE (15:15)
[2018-02-26] MEDS ORDERED: fentaNYL CITRATE 250 MCG/5 ML AMP IV ONE (15:15)
[2018-02-26] MEDS ORDERED: LR 1,000 ML IV.SOLN IV ONE (15:15)
[2018-02-26] MEDS ORDERED: ROCURONIUM BROMIDE 10 MG/ML (ZEMURON) IV ONE (15:15)
[2018-02-26] MEDS ORDERED: GLYCOPYRROLATE 0.2 MG/ML VIAL IJ ONE (15:15)
[2018-02-26] MEDS ORDERED: MIDAZOLAM HCL 5 MG/ML VIAL (VERSED) IV ONE (15:15)
[2018-02-26] MEDS ORDERED: NEOSTIGMINE METHYLSULFATE 1 MG/ML, 10 ML VIAL IVP ONE (15:15)
[2018-02-26] MEDS ORDERED: NS 1000 ML BAG IV ONE (15:15)
[2018-02-26] MEDS ORDERED: fentaNYL CITRATE/PF 100 MCG/2 ML AMP IVP PRN ×2 (15:45)
[2018-02-26] MEDS ORDERED: ONDANSETRON HCL 4 MG/2 ML VIAL IVP PRN (15:45)
[2018-02-26 16:30] VITALS: BP_SYST 139
--- NOTE | 2018-02-26 16:35 | NUR ---
BACK FROM OR PT BACK FROM OR, PT IN STABLE CONDITION, AAOX4, VERBAL. IV CATHETER PATENT, NO SIGNS OF INFECTION OR INFILTRATION NOTED. PT HAS A DAVID CATHETER DRAINING VIA GRAVITY, YELLOW URINE. PT HAS THREE ABD INCISIONS COVERED WITH A DRESSING, CLEAN AND DRY. PT HAS AN NG TUBE TO LEFT NARES, CONNECTED TO LOW INTERMITTENT SUCTION AND DRAINING GREEN. VSS, PATIENT ON OXYGEN 2 LITERS VIA NASAL CANNULA, SATURATION OF 94%, 139/72, 95, 18, 98.6. WILL CONTINUE TO MONITOR PT FOR ANY CHANGES.
--- NOTE | 2018-02-26 18:39 | NUR ---
CLOSING NOTE PT IN BED, NO S/S OF DISTRESS OR SOB NOTED, PT HAS NO C/O PAIN AT THIS TIME, PT IN STABLE CONDITION, PT AAOX4, VERBAL, IV CATHETER PATENT, NO SIGNS OF INFECTION OR INFILTRATION NOTED. BED AT LOWEST POSITION, CALL LIGHT WITHIN REACH, WILL ENDORSE CARE OF PT TO INCOMING NURSE, FALL AND SAFETY PRECAUTIONS IN PLACE. BED ALARM ON, F/C DRAINING VIA GRAVITY. PT HAS AN NG TUBE ON LEFT NARES, CONTINUOUS LOW INTERMITTENT SUCTION.
[2018-02-26 19:15] VITALS: BP_SYST 124
--- NOTE | 2018-02-26 19:55 | NUR ---
INITIAL NOTES RECEIVED PATIENT ON BED AWAKE AND RESTING, PATIENT IS VERBAL AND ABLE TO STATE HER NEEDS AND PAIN LEVEL, NO PAIN AT THIS TIME. BREATHING EVEN AND UNLABORED, NO SOB NOTED, MAINTAINED POSITION OF COMFORT ENCOURAGED TO TURN FROM SIDE TO SIDE TOLERATED. WITH IV INFUSING WELL, NO SWELLING AND INFECTION NOTED. WITH NG TUBE CHECKED FOR PLACEMENT INTACT ON CONTINUOUS LOW INTERMITTENT SUCTION TOLERATING WELL. ADVISED NOT TO REMOVE, OR PULL OUT THE NG TUBE, VERBALIZED UNDERSTANDING. WITH DAVID CATH DRAINING TO GRAVITY INTACT. MAINTAINED SAFETY AND FALL PRECAUTIONS, MAINTAINED NPO, EXPLAINED THE PLAN OF CARE TO PATIENT AND FAMILY WILL CONTINUE TO MONITOR CALL LIGHT WITHIN REACH.
[2018-02-26 20:00] VITALS: BP_SYST 124
--- NOTE | 2018-02-26 20:30 | NUR ---
INCENTIVE SPIROMETER PATIENT AND FAMILY EDUCATED ON THE USE OF INCENTIVE SPIROMETER, PATIENT TOLERATING UP TO 1000, PATIENT STATES THAT SHE IS HAVING ABDOMINAL PAINS WHEN DOING THE EXERCISE.
--- NOTE | 2018-02-26 22:10 | NUR ---
RN ROUNDS PATIENT ON BED SLEEPING AND RESTING BREATHING EVEN AND UNLABORED, ON STABLE CONDITION NO PAIN NOTED SAFETY PRECAUTIONS MAINTAINED WILL CONTINUE TO MONITOR CALL LIGHT WITHIN REACH
--- NOTE | 2018-02-27 00:06 | NUR ---
RN ROUNDS PATIENT ON BED SLEEPING AND RESTING BREATHING EVEN AND UNLABORED, MAINTAINED POSITION OF COMFORT MAINTAINED SAFETY PRECAUTION, NO PAIN NOTED. MAINTAINED PATIENT ON NPO TOLERATING WELL. NG TUBE INTACT WITH CONTINUOUS LOW INTERMITTENT SUCTION WILL CONTINUE TO MONITOR CALL LIGHT WITHIN REACH
[2018-02-27 01:15] VITALS: BP_SYST 125
--- NOTE | 2018-02-27 01:45 | NUR ---
NEW IV NEW IV INSERTED AT THE LEFT HAND 22G TOLERATING WELL CLEAN DRY INTACT NO SWELLING NOTED
--- NOTE | 2018-02-27 02:03 | NUR ---
RN ROUNDS PATIENT ON BED SLEEPING AND RESTING, ON STABLE CONDITION, SAFETY PRECAUTIONS MAINTAINED NO PAIN NOTED, WILL CONTINUE TO MONITOR CALL LIGHT WITHIN REACH.
[2018-02-27] MEDS: MORPHINE 4 MG/ML INJ. SYRINGE IVP PRN ×2 (03:49→07:50)
--- NOTE | 2018-02-27 03:55 | NUR ---
RN ROUNDS PATIENT ON BED AWAKE AND RESTING WITH PAIN LEVEL OF 10/10 ON THE ABDOMINAL AREA, BREATHING EVEN AND UNLABORED, MAINTAINED POSITION OF COMFORT ENCOURAGED TO TURN FROM SIDE TO SIDE TOLERATED WILL CONTINUE TO MONITOR CALL LIGHT WITHIN REACH. Addendum: 02/27/18 at 0357 by Gm Doty RN PAIN MEDICATION GIVEN
[2018-02-27] MEDS: PIPERACILLIN/TAZO 3.375/DEX-IS 50 ML IV SCH ×4 (05:38→23:43)
[2018-02-27 06:51] LABS: BASOPHILS # (AUTO) 0.1 K/uL (0.0-0.2); BASOPHILS % (AUTO) 0.6 % (0.0-2.0); EOSINOPHILS # (AUTO) 0.4 K/uL (0.0-0.4); EOSINOPHILS % (AUTO) 3.9 % (0.0-4.0); HEMATOCRIT 37.3 % (36-48); HEMOGLOBIN 12.9 g/dL (12.0-16.0); LYMPHOCYTES # (AUTO) 1.8 K/uL (1.0-5.5); LYMPHOCYTES % (AUTO) 16.6 % (20.5-51.5); MEAN CORPUSCULAR HEMOGLOBIN 33 pg (27-31); MEAN CORPUSCULAR HGB CONC 35 % (32-36); MEAN CORPUSCULAR VOLUME 95 fL (79.0-98.0); MONOCYTES # (AUTO) 0.6 K/uL (0.0-1.0); MONOCYTES % (AUTO) 5.3 % (1.7-9.3); NEUTROPHILS # (AUTO) 7.8 K/uL (1.8-7.7); NEUTROPHILS % (AUTO) 73.6 % (40.0-70.0); PLATELET COUNT (AUTO) 318 K/uL (130-430); RED BLOOD CELL COUNT(AUTO) 3.91 MIL/uL (4.2-6.2); RED CELL DISTRIBUTION WIDTH 12.6 % (9.0-15.0); WHITE BLOOD COUNT (AUTO) 10.7 K/uL (4.8-10.8)
[2018-02-27 07:03] LABS: CALCIUM 8.4 mg/dL (8.4-11.0); CREATININE 0.58 mg/dL (0.55-1.30); POTASSIUM 3.1 mmol/L (3.5-5.1)
[2018-02-27 07:04] LABS: ALBUMIN 2.6 g/dL (3.4-4.8); TOTAL BILIRUBIN 0.6 mg/dL (0.0-1.0)
[2018-02-27 08:00] VITALS: BP_SYST 128
--- NOTE | 2018-02-27 08:00 | NUR ---
AOX4, NO SOB NOTED, IV AT LEFT HAND, #22. NG TUBE CHECKED FOR PLACEMENT INTACT ON CONTINUOUS LOW INTERMITTENT SUCTION. PATIENT AND HER FAMILY MEMBERS ARE ADVISED NOT TO REMOVE NGT, WITH THE PURPOSE OF NGT IS EXPLAINED. F/C IS DRAINING YELLOW URINE. NPO. POC IS EXPLAINED, CALL LIGHT IN PLACE, BED LOCKED AT THE LOWEST POSITION, WILL CONTINUE TO MONITOR.
--- NOTE | 2018-02-27 08:02 | NUR ---
CLOSING NOTES PATIENT ON BED AWAKE AND RESTING WITH FAMILY ON THE BEDSIDE, BREATHING EVEN AND UNLABORED, NO SOB NOTED, PATIENT STATED THAT SHE IS UNCOMFORTABLE WITH THE IV ON THE LEFT HAND AND NO SWELLING AND REDNESS NOTED, MAINTAINED SAFETY PRECAUTION IN INFUSING WELL, NG TUBE WITH INTERMITTENT SUCTION INTACT AND WITH OUTPUT OF LESS THAN 1 ML. DAVID CATH INTACT AND DRAINING TO GRAVITY. WILL GIVE REPORT TO AM NURSE CALL LIGHT WITHIN REACH.
[2018-02-27] MEDS: PREGABALIN 75 MG CAPSULE (LYRICA) PO SCH ×3 (09:00→21:00)
[2018-02-27] MEDS: MELOXICAM 7.5 MG TABLET PO SCH ×2 (09:00→16:12)
[2018-02-27] MEDS: SIMETHICONE 80 MG TAB.CHEW PO SCH ×3 (09:00→21:19)
[2018-02-27] MEDS: CYCLOBENZAPRINE HCL 10 MG TABLET (FLEXERIL) PO SCH ×2 (09:00→21:19)
[2018-02-27] MEDS: PANTOPRAZOLE SODIUM 40 MG TAB PO SCH ×2 (09:00→16:12)
[2018-02-27] MEDS: traMADol HCL HCL 50 MG TABLET (ULTRAM) PO SCH ×3 (09:00→21:20)
[2018-02-27] MEDS: DULoxetine HCL 30 MG CAPSULE.DR (CYMBALTA) PO SCH ×2 (09:00→21:19)
[2018-02-27] MEDS: KETOROLAC TROMETHAMINE 30 MG VIAL IVP PRN (10:44)
[2018-02-27] MEDS: METOCLOPRAMIDE HCL 10 MG/2 ML VIAL IVP PRN (10:44)
--- NOTE | 2018-02-27 10:48 | NUR ---
PATIENT IS C/O PAIN. TORADOL IS GIVEN IVP.
--- NOTE | 2018-02-27 12:05 | NUR ---
PATIENT IS VISIBLY ANXIOUS AND RESTLESS. DR. JULIO IS CALLED.
[2018-02-27 12:59] VITALS: BP_SYST 137
[2018-02-27] MEDS ORDERED: LORazepam 2 MG/ML VIAL IVP PRN (13:00)
[2018-02-27] MEDS ORDERED: LORazepam 2 MG/ML VIAL ONE (13:09)
--- NOTE | 2018-02-27 13:09 | NUR ---
DR. JULIO CALLED BACK. ORDERS WERE GIVEN FOR PATIENT'S ANXIETY.
[2018-02-27] MEDS ORDERED: LORazepam 2 MG/ML VIAL IM PRN (14:30)
[2018-02-27] MEDS ORDERED: POTASSIUM CHLORIDE 40 MEQ, LIDOCAINE JECT 2% PF 100 MG 50 MG in NS 250 ML IV ONE (14:45)
--- NOTE | 2018-02-27 15:17 | NUR ---
F/C IS DISCONNECTED. PATIENT PASSED A LARGE BM, AND DR. DUVALL IS INFORMED. NGT IS STOPPED.
[2018-02-27] MEDS: D5LR 1,000 ML IV SCH (16:11)
[2018-02-27 17:04] VITALS: BP_SYST 131
--- NOTE | 2018-02-27 17:05 | NUR ---
PATIENT IS SLEEPING, NO SIGNS OF DISTRESS NOTED.
--- NOTE | 2018-02-27 18:25 | NUR ---
PATIENT HAD A SMALL AMOUNT OF CLEAR LIQUID DINNER; NO SIGNS OF DISTRESS NOTED.
[2018-02-27 20:00] VITALS: BP_SYST 125
--- NOTE | 2018-02-27 20:00 | NUR ---
Opening note Pt asleep, easily arousable. VSS, afebrile. No acute distress noted. Abd lap dressing c/d/i. Pt tolerating clear liquid diet and burping. IV fluids infusing on L. hand 22G clear, patent. Safety measures in place. Call light within reach. Daughter at bedside. Will continue to monitor pt.
[2018-02-27] MEDS: POTASSIUM CHLORIDE 20 MEQ TAB.PRT.SR PO SCH (21:19)
--- NOTE | 2018-02-27 21:38 | NUR ---
RN Rounds Pt awake, ambulated to the bathroom with assist. Pt burped. Pt voided. Daughter at bedside. Safety precaution in place. Bed alarm on. Will continue to monitor pt.
--- NOTE | 2018-02-27 23:45 | NUR ---
Rounds Pt asleep. No acute distress noted. IV antibiotic administered as ordered. Call light within reach. at bedside. To monitor.
[2018-02-28] VITALS: BP_SYST 113
--- NOTE | 2018-02-28 02:00 | NUR ---
Rounds Pt awake. Assisted to the bathroom, pt voided. at bedside. Call light within reach. To monitor.
--- NOTE | 2018-02-28 04:15 | NUR ---
Rounds Pt asleep. No s/s distress noted. Call light within reach. To monitor.
[2018-02-28] MEDS: PIPERACILLIN/TAZO 3.375/DEX-IS 50 ML IV SCH ×3 (06:18→18:05)
--- NOTE | 2018-02-28 06:20 | NUR ---
Closing notes Pt asleep easily arousable. No s/s distress or discomfort noted. Pt denies any pain at this time. IV antibiotic administered as ordered. L. FA 22G clear, patent. Call light within reach. at bedside. To endorse to am nurse.
[2018-02-28 07:25] LABS: ALBUMIN 2.9 g/dL (3.4-4.8); CALCIUM 8.9 mg/dL (8.4-11.0); CREATININE 0.62 mg/dL (0.55-1.30); POTASSIUM 3.9 mmol/L (3.5-5.1); TOTAL BILIRUBIN 0.5 mg/dL (0.0-1.0)
[2018-02-28 07:31] LABS: BASOPHILS # (AUTO) 0.1 K/uL (0.0-0.2); BASOPHILS % (AUTO) 0.9 % (0.0-2.0); EOSINOPHILS # (AUTO) 0.6 K/uL (0.0-0.4); EOSINOPHILS % (AUTO) 5.7 % (0.0-4.0); HEMATOCRIT 36.5 % (36-48); HEMOGLOBIN 12.7 g/dL (12.0-16.0); LYMPHOCYTES # (AUTO) 1.7 K/uL (1.0-5.5); LYMPHOCYTES % (AUTO) 17.4 % (20.5-51.5); MEAN CORPUSCULAR HEMOGLOBIN 32 pg (27-31); MEAN CORPUSCULAR HGB CONC 35 % (32-36); MONOCYTES # (AUTO) 0.5 K/uL (0.0-1.0); MONOCYTES % (AUTO) 5.2 % (1.7-9.3); NEUTROPHILS % (AUTO) 70.8 % (40.0-70.0); PLATELET COUNT (AUTO) 351 K/uL (130-430); RED BLOOD CELL COUNT(AUTO) 3.94 MIL/uL (4.2-6.2); RED CELL DISTRIBUTION WIDTH 12.5 % (9.0-15.0); WHITE BLOOD COUNT (AUTO) 9.9 K/uL (4.8-10.8)
[2018-02-28 07:44] LABS: MEAN CORPUSCULAR VOLUME 93 fL (79.0-98.0)
--- NOTE | 2018-02-28 07:54 | NUR ---
AOX4, NO SOB NOTED, IV AT LEFT HAND, #22. AMBULATORY WITH STANDBY ASSISTANCE. PASSED A LOOSE MODERATE BM. FAMILY MEMBER AT BEDSIDE. CALL LIGHT IN PLACE, BED LOCKED AT THE LOWEST POSITION, WILL CONTINUE TO MONITOR.
[2018-02-28] MEDS: MELOXICAM 7.5 MG TABLET PO SCH (08:30)
[2018-02-28] MEDS: DULoxetine HCL 30 MG CAPSULE.DR (CYMBALTA) PO SCH ×2 (08:31→21:24)
[2018-02-28] MEDS: PANTOPRAZOLE SODIUM 40 MG TAB PO SCH (08:31)
[2018-02-28] MEDS: POTASSIUM CHLORIDE 20 MEQ TAB.PRT.SR PO SCH ×2 (08:31→21:25)
[2018-02-28] MEDS: traMADol HCL HCL 50 MG TABLET (ULTRAM) PO SCH ×3 (08:31→21:26)
[2018-02-28] MEDS: CYCLOBENZAPRINE HCL 10 MG TABLET (FLEXERIL) PO SCH ×2 (08:31→21:24)
[2018-02-28] MEDS: PREGABALIN 75 MG CAPSULE (LYRICA) PO SCH ×3 (08:31→21:25)
[2018-02-28] MEDS: SIMETHICONE 80 MG TAB.CHEW PO SCH ×3 (08:32→21:25)
--- NOTE | 2018-02-28 10:12 | NUR ---
PATIENT IS RESTING, NO SIGNS OF DISTRESS NOTED.
--- NOTE | 2018-02-28 11:05 | NUR ---
PATIENT C/O PAIN IN THE ABDOMEN. TORADOL IVP IS GIVEN PER ORDER.
[2018-02-28] MEDS: KETOROLAC TROMETHAMINE 30 MG VIAL IVP PRN (11:09)
[2018-02-28 12:09] VITALS: BP_SYST 124
--- NOTE | 2018-02-28 13:30 | NUR ---
ROUNDS RECEIVED REPORT FROM DAYTON WHITNEY. PT IS IN BED RESTING WITH FAMILY AT BEDSIDE. PT ON RA, NO SOB NOTED. PT STATES HER LIP IS SLIGHTLY SWOLLEN. NO ITCHINESS OR SOB NOTED. NO DISTRESS NOTED. SAFETY MEASURES IN PLACE, BED TO LOWEST POSITION, BED ALARM IS ON, SIDE RAILS ARE UPX3, CALL LIGHT WITHIN REACH. WILL CONTINUE TO MONITOR.
--- NOTE | 2018-02-28 15:12 | NUR ---
ROUNDS PT TOOK 1500 MEDICATION. PT STATES ABDOMINAL PAIN IS 4/10, SCHEDULED ULTRAM GIVEN. PT IS RESTING IN BED, FAMILY AT BEDSIDE. NO SOB NOTED. PT'S UPPER LIP IS LESS SWOLLEN. PT DISTRESS NOTED. PT IA ABLE TO USE IS TO 1500. ENCOURAGED PT TU USE IS. PT VERBALIZES UNDERSTANDING. SAFETY MEASURES IN PLACE, BED TO LOWEST POSITION, SIDE RAILS UPX2, CALL LIGHT WITHIN REACH.
[2018-02-28] MEDS ORDERED: NYSTATIN 500,000 UNITS/5 ML UDC PO ONE (15:15)
[2018-02-28] MEDS ORDERED: HYDROCORTISONE ACETATE 1 SUPP (ANUSOL HC) RC ONE (15:15)
[2018-02-28 16:50] VITALS: BP_SYST 109
[2018-02-28] MEDS: NYSTATIN 500,000 UNITS/5 ML UDC PO SCH (18:06)
--- NOTE | 2018-02-28 18:59 | NUR ---
CLOSING NOTE PT IS IN BED RESTING WITH FAMILY AT BEDSIDE. PT ON RA, NO SOB NOTED. PT HAS NOT HAD BM SINCE SUPPOSITORY WAS GIVEN. NO DISTRESS NOTED. PT DENIES ANY PAIN AT THIS TIME. SAFETY MEASURES IN PLACE, BED TO LOWEST POSITION, BED ALARM IS ON, SIDE RAILS ARE UPX3, CALL LIGHT WITHIN REACH. WILL ENDORSE TO CHART COLLECTOR NURSE.
--- NOTE | 2018-02-28 19:25 | NUR ---
OPENING NOTES RECEIVED PATIENT IN BED AAOX4. FAMILY MEMBERS AT BEDSIDE. DENIES PAIN THIS TIME. RESPIRATION EVEN NONLABORED ON ROOM AIR. PER PATIENT SHE WOULD LIKE TO HAVE A SHOWER LATER TONIGHT. PLAN OF CARE REVIEWED WITH PATIENT.
[2018-02-28 21:22] VITALS: BP_SYST 144
--- NOTE | 2018-02-28 21:25 | NUR ---
MED PASS DUE MEDICATIONS GIVEN AND TOLERATED. VITAL SIGNS STABLE. PER PATIENT SHE WILL JUST TAKE SHOWER IN THE MORNING.
[2018-02-28] MEDS: HYDROCORTISONE ACETATE 1 SUPP (ANUSOL HC) RC SCH (21:27)
[2018-03-01] MEDS: PIPERACILLIN/TAZO 3.375/DEX-IS 50 ML IV SCH ×4 (00:09→17:04)
[2018-03-01] MEDS: NYSTATIN 500,000 UNITS/5 ML UDC PO SCH ×4 (00:11→17:04)
--- NOTE | 2018-03-01 00:14 | NUR ---
MED PASS DUE MEDICATIONS GIVEN. VITAL SIGNS STABLE. DENIES PAIN. CALL LIGHT WITHIN EASY REACH.
[2018-03-01 01:03] VITALS: BP_SYST 132
--- NOTE | 2018-03-01 02:06 | NUR ---
ROUNDS PATIENT RESTING/ASLEEP. BREATHING UNLABORED ON ROOM AIR. NO DISTRESS NOTED. BED IN LOWEST LOCKED POSITION. CALL LIGHT WITHIN EASY REACH.
--- NOTE | 2018-03-01 04:15 | NUR ---
ROUNDS PATIENT HEARED SNORING LOUD. PATIENT INSTRUCTED TO SLEEP ON HER SIDE. PLACED CALL LIGHT WITHIN REACH.
--- NOTE | 2018-03-01 06:15 | NUR ---
IV LINE IV LINE OUT. NEW IV LINE INSERTED TO LEFT HAND G#22.
--- NOTE | 2018-03-01 06:35 | NUR ---
CLOSING NOTES PATIENT IN BED RESTING. DENIES PAIN. BREATHING CALM/UNLABORED. ABDOMINAL INCISIONS DRY NO BLEEDING NOTED. NEEDS ATTENDED.
[2018-03-01 08:00] VITALS: BP_SYST 131
--- NOTE | 2018-03-01 08:00 | NUR ---
Opening Note Report received from [facility] shift nurse. Patient is resting comfortable. IV is on the left hand 22g saline locked. patient has active bowel sounds, abd is still distended. Abdominal incisions are dry and intact. Call light is within reach and bed is in low position. Will continue to monitor.
[2018-03-01] MEDS: POTASSIUM CHLORIDE 20 MEQ TAB.PRT.SR PO SCH (09:47)
[2018-03-01] MEDS: MELOXICAM 7.5 MG TABLET PO SCH (09:47)
[2018-03-01] MEDS: traMADol HCL HCL 50 MG TABLET (ULTRAM) PO SCH ×2 (09:47→15:55)
[2018-03-01] MEDS: SIMETHICONE 80 MG TAB.CHEW PO SCH ×2 (09:47→15:55)
[2018-03-01] MEDS: PANTOPRAZOLE SODIUM 40 MG TAB PO SCH (09:47)
[2018-03-01] MEDS: DULoxetine HCL 30 MG CAPSULE.DR (CYMBALTA) PO SCH (09:47)
[2018-03-01] MEDS: PREGABALIN 75 MG CAPSULE (LYRICA) PO SCH ×2 (09:47→15:55)
[2018-03-01] MEDS: CYCLOBENZAPRINE HCL 10 MG TABLET (FLEXERIL) PO SCH (09:47)
[2018-03-01] MEDS: HYDROCORTISONE ACETATE 1 SUPP (ANUSOL HC) RC SCH (09:51)
--- NOTE | 2018-03-01 10:03 | NUR ---
Rounds Patient is resting in bed. No complaints of pain at the moment.
--- NOTE | 2018-03-01 12:02 | NUR ---
Rounds patient is resting in bed. Son is at the bedside.
[2018-03-01 12:36] VITALS: BP_SYST 130
--- NOTE | 2018-03-01 14:10 | NUR ---
Rounds Patient is resting in bed. No signs of distress noted. Call light is within reach.
--- NOTE | 2018-03-01 16:30 | NUR ---
Rounds Patient is resting in bed. is at the bedside.
--- NOTE | 2018-03-01 16:45 | NUR ---
Spoke with Spoke with Dr. Fragoso. stated that patient may be discharged home from his standpoint and two follow up with him in two weeks.
[2018-03-01 16:46] VITALS: BP_SYST 134
--- NOTE | 2018-03-01 18:30 | NUR ---
Closing Note Patient is resting in bed. Call light is within reach. No signs of distress noted throughout the shift. Will endorse care to the oncoming nurse.
[2018-03-01 19:21] VITALS: BP_SYST 143
--- NOTE | 2018-03-01 19:30 | NUR ---
INITIAL CONTACT patient is alert oriented x4. IV on left hand 22G, flushed with NS, no infiltration noted. informed patient that she would be discharged, all discharge paper work would be brought to patient. patient verbalized understanding. will continue to monitor
[2018-03-01 19:45] VITALS: BP_SYST 143
--- NOTE | 2018-03-01 19:50 | NUR ---
PAGED Dr. Barrios paged. awaiting call back.
--- NOTE | 2018-03-01 20:00 | NUR ---
IV REMOVAL IV removed using clean technique. catheter intact. applied pressure dressing. patient tolerated well. will continue to monitor.
--- NOTE | 2018-03-01 20:50 | NUR ---
D/C Patient Patient given medication reconciliation form and D/C instructions. Exit Care provided. Patient verbalized understanding. Ambulatory with steady gait for discharge to home. Patient in stable condition, ID band removed. Patient educated on pain management. All belongings sent with patient.
--- NOTE | 2018-03-01 20:51 | NUR ---
RETURNED CALL Dr. Barrios returned call. informed him that patient has inquired about Mycostatin oral and Anusol suppository. he states that patient would not need Mycostatin oral since patient is not diabetic and it would go away once patient starts eating. he also states that Anusol is over the counter if patient wants it, but he does not think that patient would need it and he can follow up with Dr. Fragoso. informed patient what Dr. Barrios stated. patient verbalized understanding.
== END 2018-03-01 20:50 | disposition home or self-care (01) | DRG 854 ==
LOC: SED 03:56 → STU 08:36 → SMU 02-24 17:48
PROVIDERS: ADMIT Internal Medicine; ATTEND Internal Medicine
PROC: 0D9670Z Drainage of Stomach with Drainage Device, Via Natural or Artificial Opening (ICD-10-PCS; principal; 2018-02-23)
PROC: 0DNK4ZZ Release Ascending Colon, Percutaneous Endoscopic Approach (ICD-10-PCS; 2018-02-26)
DX: A41.9 Sepsis, unspecified organism (principal); K56.51 Intestinal adhesions [bands], with partial obstruction; F17.200 Nicotine dependence, unspecified, uncomplicated; M79.7 Fibromyalgia; M19.90 Unspecified osteoarthritis, unspecified site; F32.9 Major depressive disorder, single episode, unspecified; G43.909 Migraine, unspecified, not intractable, without status migrainosus; K21.9 Gastro-esophageal reflux disease without esophagitis; M10.9 Gout, unspecified; K46.9 Unspecified abdominal hernia without obstruction or gangrene; G89.4 Chronic pain syndrome; F41.9 Anxiety disorder, unspecified; K64.8 Other hemorrhoids; Z79.899 Other long term (current) drug therapy; Z90.49 Acquired absence of other specified parts of digestive tract; Z79.52 Long term (current) use of systemic steroids
CPT/HCPCS: 36415; 71045; 74018; 74250-TC; 80048; 80053; 81000-TC; 83605; 83690-TC; 83735-TC; 84100-TC; 85025; 85610-TC; 85730-TC; 87040-TC; 87081; 87086; 93005; 96361; 96365; 96375; 96376; 99285; C1727; J1885; J2060; J2250; J2270; J2370; J2405; J2543; J2704; J2710; J2765; J3010; J3360; J3480; J3490; J7030; J7050; J7120; Q9963

== ENCOUNTER 2021-11-15 05:29 | Day surgery (SDC) | payer BC, OTHER, SELFPAY ==
[~2021-11-15] VITALS: Ht 167.6 cm; Wt 68.9 kg
[~2021-11-15 05:29] MED LIST changes: +ACET325T PO; -ARMO200T PO; -CYCL-10 PO; +CYCL10TA24 PO; -DULO20CA PO; +DULO60CA42 PO; -ESOM20CA33 PO; +ESOM40CA53 PO; -LINA145C PO; -LYR50 PO; -PRED-428 PO; +PREG150C PO; +SYMPROIC PO; -TRAM100T28 PO; +TRAM50TA92 PO
[2021-11-15] MEDS ORDERED: ACETAMINOPHEN I.V. 1000 MG 100 ML IV ONE (07:28)
[2021-11-15] MEDS ORDERED: MEPERIDINE HCL/PF 25 MG/ML DISP.SYRIN IVP PRN (08:45)
[2021-11-15] MEDS ORDERED: hydrALAZINE HCL 20 MG/ML VIAL IVP PRN (08:45)
[2021-11-15] MEDS ORDERED: METOCLOPRAMIDE HCL 10 MG/2 ML VIAL IVP PRN (08:45)
[2021-11-15] MEDS ORDERED: HYDROmorphone 1 MG/ML INJ. CARTRIDGE IVP PRN (08:45)
[2021-11-15] MEDS ORDERED: LABETALOL 100 MG/ 20ML VIAL IVP PRN (08:45)
[2021-11-15] MEDS ORDERED: LR 1,000 ML IV SCH (08:45)
[2021-11-15] MEDS ORDERED: MIDAZOLAM HCL 2 MG/2 ML VIAL (VERSED) IVP PRN (08:45)
[2021-11-15] MEDS ORDERED: LIDOCAINE/EPI 1% 1:100000 20 ML VIAL INJ ONE (11:29)
[2021-11-15] MEDS ORDERED: DEXAMETHASONE SOD PHOSPHATE 4 MG/ML VIAL ONE (11:29)
[2021-11-15] MEDS ORDERED: SEVOFLURANE 15 MIN GAS INH ONE (11:29)
[2021-11-15] MEDS ORDERED: ONDANSETRON HCL 4 MG/2 ML VIAL ONE (11:29)
[2021-11-15] MEDS ORDERED: LIDOCAINE 1% 10 MG/ML, 20 ML MDV ONE (11:29)
[2021-11-15] MEDS ORDERED: PROPOFOL 200MG/ 20ML VIAL (DIPRIVAN) IV ONE (11:29)
[2021-11-15] MEDS ORDERED: NS IRRIG SOLN 1000 ML IR ONE (11:29)
[2021-11-15] MEDS ORDERED: LR 1,000 ML IV.SOLN IV ONE (11:29)
[2021-11-15] MEDS ORDERED: LIDOCAINE 2%, 20 ML MDV ONE (11:29)
[2021-11-15] MEDS ORDERED: KETOROLAC TROMETHAMINE 30 MG VIAL ONE (11:29)
[2021-11-15] MEDS ORDERED: MIDAZOLAM HCL 5 MG/ML VIAL (VERSED) IV ONE (11:29)
[2021-11-15] MEDS ORDERED: ROCURONIUM BROMIDE 10 MG/ML (ZEMURON) ONE (11:29)
[2021-11-15] MEDS ORDERED: fentaNYL CITRATE 250 MCG/5 ML AMP ONE (11:29)
[2021-11-15] MEDS ORDERED: BACITRACIN 1 GM OINT TP ONE (11:29)
[2021-11-15] MEDS ORDERED: SUCCINYLCHOLINE CHLORIDE 20 MG/ML(QUELICIN) ONE (11:29)
[2021-11-15] MEDS ORDERED: HYDROmorphone 1 MG/ML INJ. CARTRIDGE ONE (11:42)
[2021-11-15] MEDS: HYDROmorphone 1 MG/ML INJ. CARTRIDGE IVP PRN ×2 (11:43→12:18)
[2021-11-15] MEDS: MUPIROCIN 2% TOPICAL OINTMENT 22 GM TP SCH ×3 (11:45→23:15)
[2021-11-15] MEDS ORDERED: KCL 20 mEq in 0.45% NS 1000 mL 1,000 ML IV SCH (11:45)
[2021-11-15] MEDS ORDERED: 0.45% NACL 1,000 ML IV SCH (11:45)
[2021-11-15] MEDS ORDERED: HYDROcodone/ACETAMIN 5-325 MG TAB (NORCO/ VICODIN) PO PRN (11:45)
[2021-11-15 14:00] VITALS: BP_SYST 130
--- NOTE | 2021-11-15 14:01 | NUR ---
PATIENT BROUGHT TO ROOM 104-A, REPORT RC'VD AT BEDSIDE FROM CLINICAL DERMATOLOGIST. ALL CARES ASSUMED. PATIENT AWAKE AND ORIENTED C/O PAIN 8/. PATIENT WAS ABLE TO TRANSFER HERSELF FROM [facility] TO BED. PATIENT ON RA WITH OXYGEN READING OF 96% ON MONITOR. EQUAL CHEST RISE AND FALL WITH NO ACUTE DISTRESS NOTED. PATIENT DENIES CHEST PAIN. HR 107, PULSES PALPABLE BUE / BLE. BP 130/70. RIGHT WRIST 20G, PATENT WITH FLUIDS RUNNING. ABD SOFT ROUND WITH HYPOACTIVE BOWEL SOUNDS. BLADDER PALPABLE FIRM, PER PACU NURSE PATIENT HAS NOT URINATED. WILL BLADDER SCAN. SCD'S APPLIED TO LOWER EXTREMITIES. BED LOW AND LOCKED FOR SAFETY. CALL LIGHT IN REACH.
[2021-11-15 14:20] VITALS: BP_SYST 130
--- NOTE | 2021-11-15 14:45 | NUR ---
INCISION SITE CLEAN AND DRY, NO SIGNS OF BLEEDING. STERI STRIPS INTACT. ORDER IN PACE FOR BACTROBAN OINTMENT TO BE PLACED DIRECTLY ONTO STERI-STRIP SITE. PENDING PHARMACY DELIVERY OF OINTMENT AT THIS TIME.
--- NOTE | 2021-11-15 15:03 | NUR ---
ICE CHIPS GIVEN TO PATIENT, EDUCATED PATIENT ON CLEAR LIQUID DIET. PATIENT HAS VERBALIZED UNDERSTANDING.
[2021-11-15 16:00] VITALS: BP_SYST 127
[2021-11-15] MEDS: KCL 20 mEq in 0.45% NS 1000 mL 1,000 ML IV SCH (16:24)
[2021-11-15] MEDS: ONDANSETRON HCL 4 MG/2 ML VIAL IVP PRN ×2 (16:28→20:20)
[2021-11-15] MEDS: MORPHINE 2 MG/ML INJ. SYRINGE IVP PRN ×2 (16:29→20:22)
--- NOTE | 2021-11-15 16:29 | NUR ---
PRN MORPHINE 2MG IVP GIVEN FOR PAIN 07/21
--- NOTE | 2021-11-15 18:20 | NUR ---
PATIENT SITTING UP IN BED, JELLO AND BROTH GIVEN. ASSISTED PATIENT TO DANGLE HER FEET.
--- NOTE | 2021-11-15 18:21 | NUR ---
DR. FREED CALLED UNIT, VERBAL UPDATES GIVEN. ALL QUESTIONS ANSWERED.
--- NOTE | 2021-11-15 18:50 | NUR ---
CLOSING NOTE: REPORT GIVEN TO INCOMING NOC RN, ALL CARES ENDORSED.
[2021-11-16] MEDS: MORPHINE 2 MG/ML INJ. SYRINGE IVP PRN (03:54)
[2021-11-16] MEDS: ONDANSETRON HCL 4 MG/2 ML VIAL IVP PRN (03:55)
[2021-11-16] MEDS: KCL 20 mEq in 0.45% NS 1000 mL 1,000 ML IV SCH ×2 (04:02→16:15)
[2021-11-16 05:58] VITALS: BP_SYST 122
[2021-11-16 08:00] VITALS: BP_SYST 133
[2021-11-16] MEDS: MUPIROCIN 2% TOPICAL OINTMENT 22 GM TP SCH ×2 (09:05→15:15)
[2021-11-16] MEDS: HYDROcodone/ACETAMIN 5-325 MG TAB (NORCO/ VICODIN) PO PRN ×2 (09:06→18:03)
[2021-11-16 16:00] VITALS: BP_SYST 126
--- NOTE | 2021-11-16 18:25 | NUR ---
Note Dr Odell came to floor at 0830am and spoke to pt at bedside and pt/pt's . Questions/concerns were answered at this time. Pt was encouraged to try and rink Clear Liquids diet as tolerated. Pt ate Clear Liquids lunch tray 50%. Tolerated well. Pt's family has been at bedside throughout the shift assisting pt and helping pt with needs and ambulating to restroom. Pt's IVF's were saline locked at 1400. Pt tolerated [place] PO tabs (crushed) well with apple sauce. Pt got dressed in street clothes and packed all belongings. Pt checked side table and drawers for belongings. Pt was given discharge instructions and questions/concerns were answered at this time. Pt stable. No severe throat pain/discomfort was noted throughout the shift. Dressing at upper center of throat CDI all shift (steri strips intact). Pt off the floor with all belongings and discharge paperwork via wheelchair.
== END 2021-11-16 19:00 | disposition home or self-care (01) ==
LOC: SDS 05:29 → SMU 12:29 → SDS 11-16 19:00
PROVIDERS: ATTEND Otolaryngology
DX: D44.0 Neoplasm of uncertain behavior of thyroid gland (principal); E04.1 Nontoxic single thyroid nodule; M79.7 Fibromyalgia; N95.1 Menopausal and female climacteric states; H26.8 Other specified cataract; K21.9 Gastro-esophageal reflux disease without esophagitis; G62.9 Polyneuropathy, unspecified; F17.200 Nicotine dependence, unspecified, uncomplicated; Z20.822 Contact with and (suspected) exposure to COVID-19; Z79.899 Other long term (current) drug therapy
CPT/HCPCS: 36415; 60220; 87081; 87426; 88307; 88333; J0131; J0330; J1100; J1170; J1885; J2001 ×2; J2250; J2270 ×2; J2405 ×2; J2704; J3010; J7120; U0003; J3480

== ENCOUNTER 2023-08-16 08:04 | Emergency (ER) | payer OTHER, BC ==
[~2023-08-16] VITALS: Ht 162.6 cm; Wt 59.0 kg
[~2023-08-16 08:04] MED LIST changes: -ACET325T PO
[2023-08-16 08:16] VITALS: BP_SYST 137; PULSE 97; RESP 18; TEMP 98.3; O2SAT 98
[2023-08-16 08:46] LABS: BASOPHILS # (AUTO) 0.1 K/uL (0.0-0.2); BASOPHILS % (AUTO) 0.9 % (0.0-2.0); EOSINOPHILS % (AUTO) 0.6 % (0.0-4.0); HEMATOCRIT 39.5 % (36-48); HEMOGLOBIN 13.2 g/dL (12.0-16.0); LYMPHOCYTES # (AUTO) 2.3 K/uL (1.0-5.5); LYMPHOCYTES % (AUTO) 30.7 % (20.5-51.5); MEAN CORPUSCULAR HEMOGLOBIN 31 pg (27-31); MEAN CORPUSCULAR HGB CONC 33 % (32-36); MEAN CORPUSCULAR VOLUME 93 fL (79.0-98.0); MONOCYTES # (AUTO) 0.4 K/uL (0.0-1.0); MONOCYTES % (AUTO) 4.8 % (1.7-9.3); NEUTROPHILS # (AUTO) 4.7 K/uL (1.8-7.7); PLATELET COUNT (AUTO) 448 K/uL (130-430); RED BLOOD CELL COUNT(AUTO) 4.27 MIL/uL (4.2-6.2); RED CELL DISTRIBUTION WIDTH 13.7 % (9.0-15.0); WHITE BLOOD COUNT (AUTO) 7.5 K/uL (4.8-10.8)
[2023-08-16 08:56] LABS: BILIRUBIN,URINE 1+ (NEGATIVE); BLOOD, URINE NEGATIVE (NEGATIVE); COLOR,URINE YELLOW (YELLOW); GLUCOSE,URINE NEGATIVE (NEGATIVE); KETONES,URINE 3+ (NEGATIVE); LEUKOCYTE ESTERASE ,URINE NEGATIVE (NEGATIVE); NITRITE, URINE NEGATIVE (NEGATIVE); PH,URINE 5.5 (5.0-8.0); PROTEIN URINE 1+ (NEGATIVE)
[2023-08-16 08:57] LABS: CLARITY/URINE HAZY (CLEAR)
[2023-08-16 08:57] LABS: CALCIUM 8.9 mg/dL (8.4-11.0); CREATININE 0.78 mg/dL (0.55-1.30); POTASSIUM 3.5 mmol/L (3.5-5.1)
[2023-08-16 09:02] LABS: ALBUMIN 3.8 g/dL (3.4-4.8); TOTAL BILIRUBIN 0.5 mg/dL (0.0-1.0); TOTAL PROTEIN, SERUM 7.2 g/dL (6.4-8.3)
[2023-08-16 09:08] LABS: BACTERIA,URINE FEW /HPF (None Seen); CALCIUM OXALATE CRYSTALS,UR 0-5 /HPF (None Seen); MUCUS,URINE 1+ /LPF (None Seen); RBC,URINE 0-3 /HPF (0-3); WBC,URINE 0-3 /HPF (0-3)
[2023-08-16 09:38] LABS: INFLUENZA TYPE A Negative (NEGATIVE); INFLUENZA TYPE B NEGATIVE (NEGATIVE)
[2023-08-16 10:16] VITALS: BP_SYST 116; PULSE 84; RESP 16; TEMP 97.8; O2SAT 96
== END 2023-08-16 10:16 | disposition home or self-care (01) ==
LOC: SED 08:04
DX: R53.1 Weakness (principal); M79.10 Myalgia, unspecified site; R11.0 Nausea; K21.9 Gastro-esophageal reflux disease without esophagitis; Z79.899 Other long term (current) drug therapy; Z20.822 Contact with and (suspected) exposure to COVID-19
CPT/HCPCS: 36415; 76376; 80053; 81000; 81001; 81015; 85025; 93005; 99284

== ENCOUNTER 2024-04-02 09:12 | Emergency (ER) | payer OTHER, BC ==
[~2024-04-02] VITALS: Ht 170.2 cm; Wt 66.7 kg
[2024-04-02 09:12] VITALS: BP_SYST 135; PULSE 96; RESP 18; TEMP 97.1; O2SAT 98
[2024-04-02 09:55] LABS: BASOPHILS % (AUTO) 0.4 % (0.0-2.0); EOSINOPHILS # (AUTO) 0.1 K/uL (0.0-0.4); EOSINOPHILS % (AUTO) 0.8 % (0.0-4.0); HEMOGLOBIN 14.2 g/dL (12.0-16.0); LYMPHOCYTES # (AUTO) 2.4 K/uL (1.0-5.5); LYMPHOCYTES % (AUTO) 34.1 % (20.5-51.5); MEAN CORPUSCULAR HEMOGLOBIN 32 pg (27-31); MEAN CORPUSCULAR HGB CONC 34 % (32-36); MEAN CORPUSCULAR VOLUME 95 fL (79.0-98.0); MONOCYTES # (AUTO) 0.4 K/uL (0.0-1.0); MONOCYTES % (AUTO) 5.5 % (1.7-9.3); NEUTROPHILS # (AUTO) 4.3 K/uL (1.8-7.7); NEUTROPHILS % (AUTO) 59.2 % (40.0-70.0); PLATELET COUNT (AUTO) 407 K/uL (130-430); RED BLOOD CELL COUNT(AUTO) 4.43 MIL/uL (4.2-6.2); RED CELL DISTRIBUTION WIDTH 13.5 % (9.0-15.0); WHITE BLOOD COUNT (AUTO) 7.2 K/uL (4.8-10.8)
[2024-04-02 09:56] LABS: PROTHROMBIN TIME 10.1 SECS (9.5-12.5)
[2024-04-02 10:22] LABS: AMYLASE 73 U/L (0-100); ANION GAP 13 (5-15); BILIRUBIN,DIRECT 0.1 mg/dL (0.0-0.3); CARBON DIOXIDE 22 mmol/L (23-29); CHLORIDE 104 mmol/L (98-107); CREATININE 0.89 mg/dL (0.55-1.30); GLUCOSE 112 mg/dL (74-106); LACTATE DEHYDROGENASE 180 U/L (81-234); LIPASE 17 U/L (16-77); POTASSIUM 3.8 mmol/L (3.5-5.1); SODIUM SERUM 139 mmol/L (136-145); TOTAL BILIRUBIN 0.5 mg/dL (0.0-1.0); TOTAL PROTEIN, SERUM 7.7 g/dL (6.4-8.3); UREA NITROGEN, BLOOD 10 mg/dL (8-21)
[2024-04-02 10:25] LABS: GFR AFRICAN AMERICAN 81 mL/min (>90); GFR NON AFRICAN-AMERICAN 67 mL/min (>90)
[2024-04-02 10:45] LABS: ALANINE AMINOTRANSFERASE 16 U/L (12-78); ASPARTATE AMINOTRANSFERASE 12 U/L (10-37)
[2024-04-02] MEDS ORDERED: OMEP20CA15 PO (12:13)
[2024-04-02 12:25] VITALS: BP_SYST 122; PULSE 81; RESP 18; TEMP 97.1; O2SAT 98
== END 2024-04-02 12:25 | disposition home or self-care (01) ==
LOC: SED 09:12
DX: R10.12 Left upper quadrant pain (principal); R11.2 Nausea with vomiting, unspecified; K21.9 Gastro-esophageal reflux disease without esophagitis; G43.909 Migraine, unspecified, not intractable, without status migrainosus; M79.7 Fibromyalgia; Z79.899 Other long term (current) drug therapy; Z79.2 Long term (current) use of antibiotics
CPT/HCPCS: 36415; 80048; 80076; 82150; 83605; 83615; 83690; 84484; 85025; 85610; 85730; 99284